=== PATIENT | female | born 1955 | race Native Hawaiian/Other Pacific Islander ===

== ENCOUNTER 2016-11-27 13:39 | Outpatient (CLI) | payer OTHER ==
[~2016-11-27 13:39] MED LIST: CELEXA40 MG PO; HYDR25TA60 PO; LEVO0.1T6 PO
[2016-11-27 14:03] LABS: POTASSIUM 4.3 mmol/L (3.6-5.2); SODIUM 138 mmol/L (136-145)
[2016-11-27 14:17] LABS: PLATELET COUNT 260 K/uL (152-353)
== END 2016-11-27 14:30 | disposition home or self-care (01) ==
LOC: LAB 13:39
PROVIDERS: Nurse Practitioner Family
DX: R53.81 Other malaise (principal); R53.82 Chronic fatigue, unspecified; R63.5 Abnormal weight gain; I10 Essential (primary) hypertension; E03.8 Other specified hypothyroidism; E55.9 Vitamin D deficiency, unspecified; Z79.899 Other long term (current) drug therapy; Z51.81 Encounter for therapeutic drug level monitoring
CPT/HCPCS: 80053; 80061; 82306; 82607; 83036; 84436; 84443; 85027

== ENCOUNTER 2019-07-19 12:59 | Outpatient (CLI) | payer OTHER | END 2019-07-19 21:51 | disposition home or self-care (01) | LOC: CT 12:59 | DX: R29.810 Facial weakness (principal) ==

== ENCOUNTER 2020-02-21 15:38 | Outpatient (CLI) | payer OTHER | END 2020-02-21 22:31 | disposition home or self-care (01) | LOC: RAD 15:38 | DX: M79.645 Pain in left finger(s) (principal); M79.89 Other specified soft tissue disorders ==

== ENCOUNTER 2020-03-23 14:25 | Outpatient (CLI) | payer OTHER ==
[2020-03-23 15:31] LABS: PLATELET COUNT 196 K/uL (152-353)
[2020-03-23 17:24] LABS: POTASSIUM 4.1 mmol/L (3.6-5.2)
== END 2020-03-23 21:53 | disposition home or self-care (01) ==
LOC: LAB 14:25
PROVIDERS: Nurse Practitioner Family
DX: Z00.00 Encounter for general adult medical examination without abnormal findings (principal); I10 Essential (primary) hypertension; E03.8 Other specified hypothyroidism; Z13.820 Encounter for screening for osteoporosis; E55.9 Vitamin D deficiency, unspecified
CPT/HCPCS: 80053; 80061; 82306; 84439; 84443; 85027

== ENCOUNTER 2020-04-03 08:42 | Outpatient (CLI) | payer OTHER | END 2020-04-03 19:13 | disposition home or self-care (01) | LOC: MAMMO 08:42 | DX: Z13.820 Encounter for screening for osteoporosis (principal); Z12.31 Encounter for screening mammogram for malignant neoplasm of breast; N95.8 Other specified menopausal and perimenopausal disorders ==

== ENCOUNTER 2020-08-22 09:53 | Outpatient (CLI) | payer OTHER ==
[2020-08-22 13:52] LABS: PLATELET COUNT 197 K/uL (152-353)
[2020-08-22 14:10] LABS: POTASSIUM 4.6 mmol/L (3.6-5.2)
== END 2020-08-22 20:54 | disposition home or self-care (01) ==
LOC: CT 09:53 → LAB 09:53 → CT 20:54
PROVIDERS: ATTEND Nurse Practitioner Family
DX: R29.810 Facial weakness (principal); R55 Syncope and collapse; R47.81 Slurred speech; Z79.899 Other long term (current) drug therapy; I10 Essential (primary) hypertension; R53.82 Chronic fatigue, unspecified; R53.81 Other malaise; E03.8 Other specified hypothyroidism; E55.9 Vitamin D deficiency, unspecified; F32.9 Major depressive disorder, single episode, unspecified; F41.9 Anxiety disorder, unspecified
CPT/HCPCS: 80053; 80061; 82306; 82607; 83036; 84439; 84443; 84481; 85027

== ENCOUNTER 2020-12-19 09:04 | Outpatient (CLI) | payer OTHER ==
[~2020-12-19] VITALS: Ht 154.9 cm; Wt 95.7 kg
== END 2020-12-19 22:07 | disposition home or self-care (01) ==
LOC: NM 09:04
PROVIDERS: ATTEND Specialist
DX: R07.89 Other chest pain (principal)
CPT/HCPCS: A9500; J2785

== ENCOUNTER 2021-02-08 10:08 | Outpatient (CLI) | payer OTHER ==
[2021-02-08 10:47] LABS: POTASSIUM 4.7 mmol/L (3.6-5.2)
== END 2021-02-08 21:02 | disposition home or self-care (01) ==
LOC: LABW 10:08
PROVIDERS: ATTEND Nurse Practitioner Family
DX: I50.9 Heart failure, unspecified (principal); R63.5 Abnormal weight gain; R60.0 Localized edema
CPT/HCPCS: 36415; 80053; 83880

== ENCOUNTER 2021-03-13 09:14 | Outpatient (CLI) | payer OTHER | END 2021-03-13 21:45 | disposition home or self-care (01) | LOC: RESP 09:14 | PROVIDERS: ATTEND Nurse Practitioner Family | DX: J18.9 Pneumonia, unspecified organism (principal); U07.1 COVID-19 | CPT/HCPCS: 36600; 82805 ==

== ENCOUNTER 2022-03-14 10:02 | Outpatient (CLI) | payer OTHER | END 2022-03-14 19:24 | disposition home or self-care (01) | LOC: RAD 10:02 | PROVIDERS: ATTEND Internal Medicine | DX: J40 Bronchitis, not specified as acute or chronic (principal) ==

== ENCOUNTER 2022-03-28 22:11 | Emergency (ER) | payer OTHER ==
[~2022-03-28] VITALS: Ht 154.9 cm; Wt 95.7 kg
[2022-03-28 22:45] VITALS: BP 157/91; TEMP 98.4
== END 2022-03-28 22:50 | disposition home or self-care (01) ==
LOC: ED 22:11
PROC: 09C37ZZ Extirpation of Matter from Right External Auditory Canal, Via Natural or Artificial Opening (ICD-10-PCS; principal; 2022-03-28)
DX: T16.1XXA Foreign body in right ear, initial encounter (principal); X58.XXXA Exposure to other specified factors, initial encounter; Y92.89 Other specified places as the place of occurrence of the external cause
CPT/HCPCS: 99283

== ENCOUNTER 2022-11-14 11:02 | Outpatient (CLI) | payer OTHER | END 2022-11-14 17:00 | disposition home or self-care (01) | LOC: RAD 11:02 | PROVIDERS: ATTEND Nurse Practitioner Family | DX: R05.9 Cough, unspecified (principal); R06.02 Shortness of breath; R06.2 Wheezing ==